=== PATIENT | male | born 1975 | race Caucasian/White ===

== ENCOUNTER 2018-04-18 08:10 | Outpatient (CLI) | payer OTHER | END 2018-04-18 08:13 | disposition home or self-care (01) | LOC: RAD 08:10 | DX: J06.9 Acute upper respiratory infection, unspecified (principal) ==

== ENCOUNTER 2020-05-27 13:21 | Emergency (ER) | payer OTHER ==
[~2020-05-27] VITALS: Ht 170.2 cm; Wt 67.1 kg
[2020-05-27] MEDS ORDERED: INTESTINEX680 M1 PO (14:59)
[2020-05-27] MEDS ORDERED: AMOX1TAB5 PO (14:59)
== END 2020-05-27 15:14 | disposition home or self-care (01) ==
LOC: ER 13:21
DX: S91.321A Laceration with foreign body, right foot, initial encounter (principal); W25.XXXA Contact with sharp glass, initial encounter; Y93.89 Activity, other specified; Y92.89 Other specified places as the place of occurrence of the external cause; Y99.8 Other external cause status

== ENCOUNTER 2021-02-22 06:00 | Day surgery (SDC) | payer OTHER ==
[~2021-02-22 06:00] MED LIST: AMOX1TAB5 PO; INTESTINEX680 M1 PO
== END 2021-02-22 09:35 | disposition home or self-care (01) ==
LOC: AMB-ENDOS 06:00
PROVIDERS: ATTEND Surgery
DX: D12.3 Benign neoplasm of transverse colon (principal); Z20.822 Contact with and (suspected) exposure to COVID-19; Z12.11 Encounter for screening for malignant neoplasm of colon

== ENCOUNTER → 2025-02-21 07:30 | Outpatient (CLI) | payer OTHER | END | disposition home or self-care (01) | LOC: MRI 07:30 | DX: M25.561 Pain in right knee (principal); M17.11 Unilateral primary osteoarthritis, right knee | CPT/HCPCS: 73721 ==